=== PATIENT | male | born 1960 | race Two or more races ===

== ENCOUNTER 2025-02-04 02:04 | Emergency (ER) | payer SELFPAY ==
--- NOTE | 2025-02-04 02:32 | EDNOTE_ITS ---
ED Abdominal Pain RME/HPI General Chief Complaint: Back Pain/Injury Stated complaint: BACK PAIN HX OF KIDNEY STONES Time seen by provider: 02/04/25 02:27 Arrival date/time: 02/04/25 02:04 RME / HPI RME / HPI narrative: DR. BRAXTON MAIN ED EVALUATION: 64 y/o male with Hx of Kidney stones presents to ED BIBA from home with severe RLQ abdominal vs pelvic pain x approximately 12 hours. Denies vomiting. No other concerns or coplains expressed at this time. Related Data Previous Rx's ?Medication ?Instructions ?Recorded hydrocodone 10 mg-acetaminophen 1 tab PO Q6H PRN pain #20 tabs 02/04/25 325 mg tablet levofloxacin 500 mg tablet 500 mg PO QDAY #10 tabs Allergies Allergy/AdvReac Type Severity Reaction Status Date / Time No Known Allergies Allergy Verified 02/04/25 02:05 Review of Systems Review of Systems Systems Reviewed: All systems reviewed, normal except as documented ED Exam Narrative Physical exam: Generally patient is in moderate distress secondary to pain genital exam shows no hernia heart regular rate and rhythm lungs clear to auscultation abdomen soft bowel sounds present nondistended mild suprapubic abdominal tenderness without rebound musculoskeletal exam showed no costovertebral angle tenderness neurologic exam no focal motor deficits skin exam shows no rash and is warm and dry Course Quality Measures none Orders Category Date Time Status CT abdomen pelvis wo con Stat Exams 02/04/25 02:32 Ordered CBC Stat Lab 02/04/25 02:33 Completed CMP [Comprehensive Metabolic Panel] Stat Lab 02/04/25 02:33 Completed UA [Urinalysis] Stat Lab 02/04/25 02:25 Completed Ketorolac Inj [Toradol Inj] Med 02/04/25 02:31 Discontinued 30 mg IVP X1 ONE Morphine Inj Med 02/04/25 04:16 Discontinued 4 mg IVP X1 ONE cefTRIAXone/D5w 1gm IV premix [Rocephin/D5w 1gm IV Med 02/04/25 04:33 Active premix] 1 gm in 50 ml IV X1 Vital Signs Vital signs: Vital Signs Temperature 101.1 F H 02/04/25 02:36 Respiratory Rate 20 02/04/25 02:36 Blood Pressure 159/85 H 02/04/25 02:36 Pulse Oximetry (%) 97 02/04/25 02:36 Oxygen Delivery Method Room Air 02/04/25 02:36 Abdominal Pain MDM MDM Narrative MDM Narrative:: Scribe Attestation: I, Mitra Acosta, am scribing for and in the presence of Dr. Braxton. Provider Notation: Although this document has been carefully reviewed, there may still be some phonetic and other typographical errors. These errors are purely grammatical due to imperfections in the software program and should not be construed in any way to? compromise the substance of the patient's medical care during this visit. Patient has a leukocytosis of 15,000. He has white blood cells in his urine with positive nitrite and positive leukocyte esterase but no bacteria. CT scan done of the abdomen pelvis without contrast shows no obvious kidney stone or hydronephrosis. There is bladder wall thickening 6 suggest possible cystitis. Patient received Toradol 30 mg IV, morphine 4 mg IV and Rocephin 1 g IV here in the emergency room. Patient will be discharged on Levaquin to be taken as prescribed. Follow-up with his doctor. Return to ER as needed or if condition worsens. Patient data External records reviewed:: [facility] previous records (No prior ED records available for review.) and EMS form Clinical information provided by:: patient and EMS Social determinants that could affect healthcare access:: none Patient has the following chronic illnesses:: None reported How is presenting disease/condition affected by chronic disease/condition?: no chronic disease Evaluation data The following diagnostics were reviewed and interpreted by me:: lab results and radiology exam(s) Lab and/or radiology exams considered but not ordered:: None Interpretation Summary: RADIOLOGY Abdomen/Pelvis CT: Findings: No evidence of renal/ureteric calculus or hydroureteronephrosis. Nonspecific perinephric fat stranding is noted bilaterally. The liver, gallbladder, pancreas, spleen and adrenals are unremarkable on this noncontrast study. No evidence of bowel obstruction. The appendix is within normal limits (images 145- [id number]). There is diffuse urinary bladder wall thickening. There is [id number] prostatomegaly. There is no free fluid or free air. Degenerative changes are identified in the spine. There is an intramuscular lipoma in the anterior soft tissues of the right thigh, measuring 3.2 x 2.2 cm. The lung bases are clear. Please note that evaluation of soft tissue/vascular structures and bowel loops is limited due to absence of IV and oral contrast. Impression: 1. No evidence of renal/ureteric calculus or hydroureteronephrosis. 2. Adgs-hv-eadmoote prostatomegaly with urinary bladder wall thickening, which may represent cystitis versus sequelae of chronic urinary bladder outflow obstruction. 3. Other findings as described above. Suggest clinical correlation and follow up accordingly. Medications / Prescriptions Medications or Prescriptions considered but not ordered:: None Medication administrations:: Medication Administration History Ceftriaxone Sodium/Dextrose (Rocephin/D5w 1gm Iv Premix) 1 gm in 50 mls @ 100 mls/hr IV X1 ONE Stop: 02/04/25 05:02 Discontinued Medications Ketorolac Tromethamine (Ketorolac Inj 30 Mg/Ml Vial) 30 mg IVP X1 ONE Stop: 02/04/25 02:32 Last Admin: 02/04/25 02:40 Dose: 30 mg Documented By: [email or web address] Morphine Sulfate (Morphine Sulf Inj 10 Mg/Ml Vial) 4 mg IVP X1 ONE Stop: 02/04/25 04:17 Last Admin: 02/04/25 04:20 Dose: 4 mg Documented By: [email or web address] See above Consultations Consultation(s) initiated? (list below): No Diagnosis Differential diagnosis abdominal pain: abdominal pain, acute appendicitis, calculus of kidney, gastroenteritis and small bowel obstruction Most likely diagnosis given after review of the tests above:: none Admission Indicated Admission indicated?: not indicated Explain why admission is indicated or not indicated:: Patient does not meet admission criteria Admission Request Was there a request for admission?: No Disposition Plan Disposition Plan: Discharge Discharge Attestation Discharge Attestation: The patient and all family members were given an opportunity to ask questions and understood the discharge instructions. Discharge instructions specifically effects, indications for sooner follow up or return to the emergency department, and the expected course of current diagnosis. Patient condition: Stable Discharge Plan Plan Patient Disposition: HOME (Self Care) Prescriptions/Referrals Prescriptions/Med Rec: New levofloxacin 500 mg tablet 500 mg PO QDAY Qty: 10 0RF hydrocodone-acetaminophen 10-325 mg tablet 1 tab PO Q6H MDD 4 PRN (Reason: pain) Qty: 20 0RF Referrals: Temporary Provider,ED [Physician] - In 1 week Problem List Clinical Impression: UTI (urinary tract infection) Patient/Caregiver Discharge Instructions Education Materials: Urinary Tract Infections in Men Additional Instructions: Take the antibiotic as prescribed. [place] as prescribed for pain. Follow-up with your doctor. Return to ER as needed or if condition worsens. Print Language: Khmer Stand Alone Forms: [facility] Award Info., Patient Portal Info Letter
--- NOTE | 2025-02-04 02:32 | XR_ITS ---
Examination: CT abdomen and pelvis without contrast. Coronal 3-D reconstructions. Sagittal 2-D reconstructions. Date and time of exam:February 04, 2025, 0332 hours INDICATIONS: Bilateral flank and back pain today, history kidney stones CTDI: vol (mGy): 9.3 DLP: (mGycm): 586. Technique: Axial images of the abdomen have been obtained, 3 mm slice thickness Intravenous contrast material has not been administered. Low dose protocols were performed. One or more of the following dose reduction techniques were used; automated exposure control, adjustment of the mA and/or KV according to patient size, use of iterative reconstruction technique. Findings: No focal liver or splenic lesions No gallstones No pancreatic or adrenal mass Minimal perinephric stranding No renal or ureteral calculi, no hydronephrosis Aortic calcification no aneurysmal dilatation Normal appendix No bowel obstruction Mild thickening of the urinary bladder wall with pericystic inflammatory change Prostatomegaly 4.5 cm Significant degenerative disc disease L4-L5 IMPRESSION: No renal or ureteral calculi, no hydronephrosis Prostatomegaly Cystitis pattern
[2025-02-04 02:36] VITALS: BP 159/85; RESP 20; TEMP 38.4; O2SAT 97
[2025-02-04 02:40] VITALS: TEMP 38.4
[2025-02-04] MEDS: KETOROLAC INJ 30 MG/ML VIAL IVP (02:40)
[2025-02-04 02:51] LABS: Basophils # (Auto) 0.1 Thou/mm3 (0.0-0.2); Basophils % (Auto) 0 % (0-2.5); Eosinophils # (Auto) 0.0 Thou/mm3 (0.0-0.5); Eosinophils % (Auto) 0 % (0-10); Hematocrit 41.8 % (41.0-53.0); Hemoglobin 15.4 g/dL (13.5-16.0); Immature Granulocytes Auto 0.07 Thou/mm3 (0.00-0.00); Lymphocytes # (Auto) 2.1 Thou/mm3 (1.0-4.8); Lymphocytes % (Auto) 14 % (10-50); Mean Corpuscular HGB Conc 36.8 g/dl (31.0-37.0); Mean Corpuscular Hemoglobin 32.6 pg (25.0-35.0); Mean Corpuscular Volume 88 fL (80-100); Monocytes # (Auto) 0.8 Thou/mm3 (0.0-0.8); Monocytes % (Auto) 5 % (0-12); Neutrophils # (Auto) 12.1 Thou/mm3 (1.8-7.7); Neutrophils % (Auto) 80 % (37-80); Nucleated Red Blood Cell # 0.00 Thou/mm3 (0.00-0.00); Nucleated Red Blood Cell % 0 /100 WBC (0); Platelet Count 204 Thou/mm3 (140-440); RDW Standard Deviation 42.3 fL (35.1-43.9); Red Blood Count 4.73 Miln/mm3 (4.50-5.90); White Blood Count 15.1 Thou/mm3 (3.8-10.6)
[2025-02-04 02:55] LABS: Collection Type, Urine Voided
[2025-02-04 03:02] LABS: Bilirubin,Urine Negative (Negative); Blood,Urine Negative (Negative); Clarity,Urine Clear (Clear/Hazy); Color,Urine Lt-Yellow (Lt Yel-Yel); Glucose, Urine Negative (Negative); Ketones,Urine Negative (Negative); Leukocyte Esterase,Urine Positive (Negative); Nitrite,Urine Negative (Negative); PH,Urine 8.5 (5.0-7.0); Protein,Urine Negative (Neg - Trace); RBC,Urine 3 /hpf (0-3); Specific Gravity,Urine 1.015 (1.001-1.035); Squamous Epithelial Cell,Urine < 1 /hpf (0-5); Urobilinogen,Urine Negative mg/dL (0.0-1.0); WBC,Urine 114 /hpf (0-5)
[2025-02-04 03:09] LABS: Alanine Aminotransferase 44 U/L (10-49); Albumin, Serum 4.5 gm/dL (3.4-4.8); Albumin/Globulin Ratio 2.0 (1.2-2.2); Alkaline Phosphatase 110 U/L (46-116); Anion Gap 13 (7-16); Aspartate Amino Transferase 26 U/L (0-34); BUN/Creatinine Ratio 11 Ratio (12-20); Bilirubin,Total 1.0 mg/dL (0.3-1.2); Blood Urea Nitrogen 11 mg/dL (9-23); Calcium 10.0 mg/dL (8.3-10.6); Calcium (Corrected) 10.0 mg/dL (8.5-10.1); Carbon Dioxide 22.7 mMol/L (20.0-31.0); Chloride 103 mMol/L (98-107); Creatinine (Component) 1.0 mg/dL (0.6-1.3); Globulin 2.3 gm/dL (2.3-3.5); Glucose 189 mg/dL (74-106); Osmolality,Calculated 281 (275-295); Potassium 3.4 mMol/L (3.4-5.1); Sodium 139 mMol/L (136-145); Total Protein 6.8 gm/dL (5.7-8.2); eGFR > 60 See Note
[2025-02-04 03:55] VITALS: BP 174/81; PULSE 81; RESP 16; TEMP 37.4; O2SAT 97
--- NOTE | 2025-02-04 04:19 | PRELIM_ITS ---
CT scan of the abdomen and pelvis without intravenous contrast (axial sections with sagittal and coronal reformats) February 04, 2025 at 0332 hours Clinical History: Assess for kidney stone. Comparison: No prior study is available for comparison. Findings: No evidence of renal/ureteric calculus or hydroureteronephrosis. Nonspecific perinephric fat stranding is noted bilaterally. The liver, gallbladder, pancreas, spleen and adrenals are unremarkable on this noncontrast study. No evidence of bowel obstruction. The appendix is within normal limits (images [id number]). There is diffuse urinary bladder wall thickening. There is [id number] prostatomegaly. There is no free fluid or free air. Degenerative changes are identified in the spine. There is an intramuscular lipoma in the anterior soft tissues of the right thigh, measuring 3.2 x 2.2 cm. The lung bases are clear. Please note that evaluation of soft tissue/vascular structures and bowel loops is limited due to absence of IV and oral contrast. Impression: 1. No evidence of renal/ureteric calculus or hydroureteronephrosis. 2. Nxnx-xy-nevskjca prostatomegaly with urinary bladder wall thickening, which may represent cystitis versus sequelae of chronic urinary bladder outflow obstruction. 3. Other findings as described above. Suggest clinical correlation and follow up accordingly. Report Electronically Signed By: Tiburcio Salazar 02/04/2025 4:18:49 AM [EST]
[2025-02-04] MEDS: MORPHINE SULF INJ 10 MG/ML VIAL 4 MG IVP (04:20)
[2025-02-04] MEDS: cefTRIAXone/D5w 1gm IV premix 1 GM/50 ML BAG IV (04:45)
== END 2025-02-04 05:29 | disposition home or self-care (01) ==
PROVIDERS: Emergency Provider Emergency Medicine
DX: N39.0 Urinary tract infection, site not specified (principal); Z87.442 Personal history of urinary calculi; N40.0 Benign prostatic hyperplasia without lower urinary tract symptoms
CPT/HCPCS: 36415; 74176; 80053; 81001; 85025; 96365; 96375; 99283; J0696; J1885; J2270